=== PATIENT | male | born 1950 | race Caucasian/White ===

== ENCOUNTER 2018-02-24 07:28 | Observation (INO) | payer MEDICARE ==
--- NOTE | 2018-02-24 07:45 | ERNOTE ---
<ShaniEnio - Last Filed: 02/24/18 07:58> Neuro HPI ER Record Presenting Symptoms: other - possible seizure Time Seen by Provider: 02/24/18 07:36 Source: patient, EMS Exam Limitations: clinical condition Allergies/Adverse Reactions: Allergies Allergy/AdvReac Type Severity Reaction Status Date / Time No Known Allergies Allergy Unverified 02/24/18 07:45 Home Medications: HOME MEDICATIONS NK [No Home Medication] 02/24/18 [Last Taken Unknown] - History of Present Illness Narrative: Family heard banging sounds on the wall and found him unresponsive. Family states that the patient previously had seizures but has not had one for a long time and is not taking any medications for seizures at this time. Onset: cannot confirm onset Severity: mild Context: injury - head - Character of Deficits Associated Symptoms: Reports: confused - when EMS arrived at the scene but improved by the time they arrived in the ED. . Denies: neck/back pain Review of Systems - Review of Systems Constitutional: Absent: recent illness EYE: Absent: eye pain, vision changes Respiratory: Absent: shortness of breath Cardiology: Absent: chest pain Gastrointestinal/Abdominal: Present: abdominal pain - lower. Absent: nausea Genitourinary: Absent: frequency, dysuria Musculoskeletal: Absent: back pain Skin: Absent: rash Neurological: Present: See HPI Endocrine: Absent: excessive sweating Physical Exam - Physical Exam General Appearance: Present: wd/wn, alert, no apparent distress Head Exam: Present: contusions - right confucianism, raccoon eyes Eye Exam: Normal inspection: bilateral, PERRL: bilateral, EOMI: bilateral Ears, Nose, Throat: Present: normal ENT inspection, normal pharynx Neck: Present: normal inspection, nontender, supple Respiratory: Present: no respiratory distress, normal breath sounds, no accessory muscle use, chest nontender, lungs clear Cardiovascular/Chest: Present: regular rate, rhythm, no murmur Gastrointestinal/Abdominal: Present: normal bowel sounds, nondistended, soft, tenderness - mild lower quads Back Exam: Present: no CVA tenderness, no vertebral tenderness Extremity Exam: Present: normal range of motion, no edema Neurological Exam: Present: alert, oriented, normal mood/affect, no motor/ sensory deficits Skin Exam: Present: other - abrasions on right foot, and right confucianism, bruising bilateral eyes. Sharon Coma Scale - Assess Eye Opening: Spontaneous Motor: Obeys Commands Verbal: Oriented - Total Coma Scale Total: 15 ED Progress - Transfer of Care Physician Sign Out: Enio Mcleod Receiving Physician: Ross Franco Pending Results: CT/MRI results, Labs Departure Clinical Impression: Seizure, Hypoxia COPD (chronic obstructive pulmonary disease) with emphysema Qualifiers: Emphysema type: unspecified Qualified Code(s): J43.9 - Emphysema, unspecified Episode of syncope Qualifiers: Syncope type: unspecified Qualified Code(s): R55 - Syncope and collapse - Departure Disposition: Still a patient Condition: Serious <Ross Franco - Last Filed: 02/24/18 10:31> Neuro HPI ER Record Immunizations: IMMUNIZATION HX Immunizations Up to Date No History of Influenza Vaccine No Hx Pneumococcal Vaccination No Review of Systems - Review of Systems Constitutional: Present: no symptoms reported EYE: Present: no symptoms reported ENT: Present: no symptoms reported Respiratory: Present: no symptoms reported Cardiology: Present: no symptoms reported Gastrointestinal/Abdominal: Present: abdominal pain Genitourinary: Present: no symptoms reported Musculoskeletal: Present: no symptoms reported Skin: Present: no symptoms reported Endocrine: Present: no symptoms reported Hematologic/Lymphatic: Present: no symptoms reported Psych: Present: no symptoms reported - Patient's Past Medical History Patient History - Medical: Seizures - per family Physical Exam - Physical Exam General Appearance: Present: moderate distress ED Progress - Results and Orders Patient's Lab Results:: I have reviewed the patient's lab results. - Vital Signs Patient's Vital Signs:: I have reviewed the patient's vital signs. Vital Signs: Vital Signs 02/24/18 07:34 Temperature 36.4 C L Pulse Rate 83 Respiratory 20 Rate Blood Pressure 120/63 O2 Sat by Pulse 83 L Oximetry - EKG EKG: NSR EKG read: Reviewed by me - X-Ray X-Ray #1 X-Ray: abdomen Interpretation: Reviewed by me X-Ray #2 X-Ray: chest Interpretation: Reviewed by me - CT/Ultrasound CT/Ultrasound Narrative: CT the head and CT of the C-spine reviewed by me. CT of the maxillofacial as well as CT of the chest was reviewed by me. Plan - Plan Plan: Patient has an entire host of things going awry. He has a COPD exacerbation, and was found to be hypoxic on the scene with O2 sats of 70%. He also had a syncopal episode at home and has bruising to both infraorbital regions as well as a contusion to the right side of the head. He was also found to have an age indeterminate area in the brain which could be indicative of a previous CVA. It was unclear whether he had a seizure or not, although he was not incontinent he appeared to have some components of being postictal. He has what could be a mass in the left lung apex, which could be indicative of either scarring or possible cancer. He has an elevated d-dimer so were going to do a CT of the chest, as well as CT of the maxillofacial. Patient will require fairly aggressive treatment for the lungs, although just giving him a breathing treatment and keep him on several liters his O2 saturations are now in the 90s. Patient will require a a further workup in the hospital while we stabilize his COPD, including probable carotid Doppler ultrasounds, possible echocardiogram and an EEG might be considered to rule out possible seizure disorder.
[2018-02-24 07:56] LABS: Hematocrit 41.9 % (42.0-52.0); Hemoglobin 13.6 gm/dL (13.5-18.0); Mean Cell Volume 89.1 fl (78-100); Mean Corpuscular Hemoglobin 28.9 pg (27-31); Mean Corpuscular Hgb Conc 32.5 g/dl (32-36); Mean Platelet Volume 9.9 fl (8-11.3); Neutrophil # 8.9 K/mm3 (1.3-6.0); Neutrophil % 83.8 % (42-75.0); Platelet Count 255 K/mm3 (150-450); Red Cell Distribution Width 15.3 % (11.5-14.0); White Blood Count 10.7 K/mm3 (4.0-10.5)
[2018-02-24 08:14] LABS: ALT 17 U/L (19-67); AST 13 U/L (0-48); Albumin * 3.7 gm/dl (3.4-5.0); Alkaline Phosphatase * 64 U/L (50-170); Anion Gap 12.4 mmol/L (6.8-13.8); Bilirubin, Total 0.3 mg/dL (0.0-1.1); Blood Urea Nitrogen 20 mg/dL (6-23); Ca. Corrected For Albumin 9.1 mg/dL (8.4-10.2); Calcium * 9.2 mg/dL (7.9-10.9); Carbon Dioxide 26.6 mmol/L (24-32.6); Chloride 103 mmol/L (97-106); Glucose * 154 mg/dL (70-110); Sodium 138 mmol/L (132-142); Total Protein 7.1 gm/dL (6.2-8.2)
[2018-02-24 09:41] LABS: Urine Bilirubin Negative (NEGATIVE); Urine Blood Negative /ul (NEGATIVE); Urine Ketone Negative (NEGATIVE); Urine Nitrite Negative (NEGATIVE); Urine Protein Negative (NEGATIVE); Urine Urobilinogen Normal (NORMAL); Urine pH 6.5 pH (5.0-7.0)
[2018-02-24 09:55] LABS: Cocaine Ur Negative (NEGATIVE); Urine Barbiturate Negative (NEGATIVE); Urine Benzodiazepines Negative (NEGATIVE); Urine Opiates Negative (NEGATIVE); Urine PCP Negative (NEGATIVE); Urine THC Negative (NEGATIVE)
[2018-02-24 09:56] LABS: Urine Appearance Clear (CLEAR); Urine Color Yellow; Urine WBC 0-5 /hpf (0-5)
[2018-02-24 09:57] LABS: Urine Amorphous Sediment TRACE (NONE-FEW); Urine Bacteria TRACE; Urine Mucus TRACE; Urine RBC 0-5 /hpf (0-5)
--- NOTE | 2018-02-24 23:44 | HP ---
Chief Complaint - Chief Complaint Date of Service: 02/24/18 Time of Service: 12:00 Chief Complaint: Fall, loss of consciousness History of Present Illness: Segundo is a 67 yo male with relatively no significant PMH. It appears he has successfully avoided the medical field for many years until recently he was told he had COPD in the [facility] and placed on oxygen. He reports taking no medications or inhalers. He reports a significant 100 pack year smoking history having smoked almost 2 packs per day for 50 years. He reports he has recently cut down to 3-4 cigarettes per day. He was told to use the oxygen at all times but admits that he was not using it at night. He recalls feeling well yesterday and went to bed, when he awoke he was being put into an ambulance. His family that lives with him reported they heard a loud bang which they believe was him hitting the wall and floor. He was found unconscious on the floor. He reports he is usually fine with the except of a chronic mild tremor that runs in his family and occasional shortness of breath when running. - Patient's Past Medical History Patient History - Medical: No pertinent hx Patient History - Cardiac/Respiratory: COPD Patient History - Cancer: No Hx of Cancer Patient History - Surgical Procedures: Hernia Repair Patient History - Other: None - Family History Mother Family History - Medical: , No pertinent hx Family History - Cardiac/Respiratory: No pertinent hx Family History - Cancer: No pertinent family hx Father Family History - Medical: , No pertinent hx Family History - Cardiac/Respiratory: No pertinent hx Family History - Cancer: No pertinent family hx - Social History Living Situations: home Abuse History: No History of abuse Psych History: No pertinent hx Smoking Status: Current every day smoker - 100pack year smoker Have you smoked in the past 12 months: Yes Do you dip or chew tobacco: No Patient requests Smoking Cessation Consult: Yes Initiate information on Smoking Cessation: Yes Alcohol Use: occasionally Drug Use: none - Immunizations Immunizations Up to Date: No Hx Pneumococcal Vaccination: No History of Influenza Vaccine: No Review Of Systems (GEN) - Review of Systems Generalized/Overall Review: Absent: Weakness, Chills, Fever, Malaise EENTM: Present: No Symptoms Reported Respiratory: Present: Shortness of Breath Cardiac: Present: Syncope. Absent: Chest Pain, Edema, Palpitations Abdominal: Absent: Nausea, Vomiting, Hematemesis, Abdominal Pain, Constipation, Diarrhea, Melena, Bright blood from rectum Genitourinary: Present: No Symptoms Reported Musculoskeletal: Present: No Symptoms Reported Neurological: Present: Headache, Tremors. Absent: Anxiety, Depressed, Numbness , Seizure, Tingling Skin: Present: No Symptoms Reported Endocrine: Present: No Symptoms Reported Allergies/Adverse Reactions: Allergies Allergy/AdvReac Type Severity Reaction Status Date / Time No Known Allergies Allergy Verified 02/24/18 11:46 Home Medications: HOME MEDICATIONS NK [No Home Medication] 02/24/18 [Last Taken Unknown] Exam - Exam Vital Signs: Vital Signs - Last Taken Temp 37.0 C 02/24/18 22:42 Pulse 66 02/24/18 22:42 Resp 14 02/24/18 22:42 BP 93/51 02/24/18 22:42 Pulse Ox 96 02/24/18 22:42 Constitutional: Present: Alert, Oriented x3, Cooperative ENT Exam: Present: hearing grossly normal, other - Nasal bone nontender to palpation Eye Exam: bilateral eye: normal inspection, other - Periorbital ecchymosis Respiratory: Present: lungs clear, decreased breath sounds, other - Barrel chested Cardiovascular/Chest: Present: regular rate, rhythm, no murmur Peripheral Pulses: dorsalis-pedis (R): 2+, dorsalis-pedis (L): 2+, radial (R): 2 +, radial (L): 2+ Abdomen: Present: Normal bowel sounds, soft, nontender, nondistended, no rebound tenderness, no hepatospenomegaly Skin Exam: Present: normal color, warm/dry, no cyanosis, other - ecchymosis to periorbital area Lymphatic: Present: no adenopathy Neurologic: Present: inspector plug seam II-XII nml as tested, no motor/sensory deficits, alert , normal mood/affect, oriented x 3, other - MMSE 25 Appearance: Present: other - Thin Eye contact: Present: cooperative, good eye contact, normal speech Diagnostic Studies: Laboratory Results WBC 10.7 K/mm3 (4.0-10.5) H 02/24/18 07:45 RBC 4.70 M/mm3 (4.7-6.0) 02/24/18 07:45 Hgb 13.6 gm/dL (13.5-18.0) 02/24/18 07:45 Hct 41.9 % (42.0-52.0) L 02/24/18 07:45 MCV 89.1 fl (78-100) 02/24/18 07:45 MCH 28.9 pg (27-31) 02/24/18 07:45 MCHC 32.5 g/dl (32-36) 02/24/18 07:45 RDW 15.3 % (11.5-14.0) H 02/24/18 07:45 Plt Count 255 K/mm3 (150-450) 02/24/18 07:45 MPV 9.9 fl (8-11.3) 02/24/18 07:45 Immature Gran % (Auto) 0.40 % (0.001-0.429) 02/24/18 07:45 Immature Gran # (Auto) 0.04 K/mm3 (0.000-0.0310) H 02/24/18 07:45 Neutrophils % 83.8 % (42-75.0) H 02/24/18 07:45 Lymphocytes % 9.6 % (20-51) L 02/24/18 07:45 Monocytes % 5.4 % (0.0-9) 02/24/18 07:45 Eosinophils % 0.5 % (0.0-3.0) 02/24/18 07:45 Basophils % 0.3 % (0.0-1.0) 02/24/18 07:45 Nucleated RBC % 0.0 k/mm3 (0-1) 02/24/18 07:45 Neutrophils # 8.9 K/mm3 (1.3-6.0) H 02/24/18 07:45 Lymphocytes # 1.02 k/mm3 (1.5-3.5) L 02/24/18 07:45 Monocytes # 0.6 k/mm3 (0.0-1.0) 02/24/18 07:45 Eosinophils # 0.1 k/mm3 (0.0-0.7) 02/24/18 07:45 Absolute Basophils 0.0 k/mm3 (0.0-0.1) 02/24/18 07:45 D-Dimer 0.77 ug/mL (0.19-0.49) H 02/24/18 08:59 Sodium 138 mmol/L (132-142) 02/24/18 07:45 Plasma Sodium 139 mmol/L (130-142) 02/24/18 07:45 Potassium 4.0 mmol/L (3.4-4.6) 02/24/18 07:45 Chloride 103 mmol/L (97-106) 02/24/18 07:45 Carbon Dioxide 26.6 mmol/L (24-32.6) 02/24/18 07:45 Anion Gap 12.4 mmol/L (6.8-13.8) 02/24/18 07:45 BUN 20 mg/dL (6-23) 02/24/18 07:45 Creatinine 0.91 mg/dL (0.4-1.4) 02/24/18 07:45 Est GFR (Non-Af Amer) 88 mL/min (60-130) 02/24/18 07:45 BUN/Creatinine Ratio 22.0 (9.0-21.6) H 02/24/18 07:45 Random Glucose 154 mg/dL (70-110) H 02/24/18 07:45 Calcium 9.2 mg/dL (7.9-10.9) 02/24/18 07:45 Calcium Adj for Albumin 9.1 mg/dL (8.4-10.2) 02/24/18 07:45 Total Bilirubin 0.3 mg/dL (0.0-1.1) 02/24/18 07:45 AST 13 U/L (0-48) 02/24/18 07:45 ALT 17 U/L (19-67) L 02/24/18 07:45 Alkaline Phosphatase 64 U/L (50-170) 02/24/18 07:45 Total Protein 7.1 gm/dL (6.2-8.2) 02/24/18 07:45 Albumin 3.7 gm/dl (3.4-5.0) 02/24/18 07:45 Urine Color Yellow 02/24/18 09:27 Urine Appearance Clear (CLEAR) 02/24/18 09:27 Urine pH 6.5 pH (5.0-7.0) 02/24/18 09:27 Ur Specific [place] 1.020 SP.GR. (1.005-1.030) 02/24/18 09:27 Urine Protein Negative mg/dL (NEGATIVE) 02/24/18: Urine Glucose (UA) Negative mg/dL (NEGATIVE) 02/24/18: Urine Ketones Negative mg/dL (NEGATIVE) 02/24/18 Urine Blood Negative /ul (NEGATIVE) 02/24/18: Urine Nitrate Negative (NEGATIVE) 02/24/18: Urine Bilirubin Negative mg/dl (NEGATIVE) 02/24/18: Urine Urobilinogen Normal EU/dl (NORMAL) 02/24/18: Ur Leukocyte Esterase Negative /ul (NEGATIVE) 02/24/18 Urine RBC 0-5 /hpf (0-5) 02/24/18 Urine WBC 0-5 /hpf (0-5) 02/24/18 Ur Epithelial Cells None seen /hpf (0-5) 02/24/18 Amorphous Sediment Trace (NONE-FEW) 02/24/18 Urine Bacteria Trace (NONE) 02/24/18: Urine Mucus Trace (NONE) 02/24/18: Urine Culture Comments No culture indicated 02/24/18 Urine Opiates Screen Negative (NEGATIVE) 02/24/18: Barbiturate Screen Negative (NEGATIVE) 02/24/18: Ur Phencyclidine Scrn Negative (NEGATIVE) 02/24/18 Urine Amphetamine Negative (NEGATIVE) 02/24/18: U Benzodiazepines Scrn Negative (NEGATIVE) 02/24/18: Urine Cocaine Screen Negative (NEGATIVE) 02/24/18: Urine Marijuana (THC) Negative (NEGATIVE) 02/24/18: Ethyl Alcohol Less than 3.0 mg/dL (0.0-10.0) 02/24/18 07:45 Assessment/Plan - Narrative Narrative: Segundo is a 67 yo male with: 1) Syncope and Collapse - Unclear etiology. He was not using his home oxygen, so I suspect he was hypoxic and delirious and fell into the wall and floor and became unconscious. Head CT negative. Will plan to obtain Brain MRI for further evaluation. Since EMS arrived he has been awake and appears to have returned to his baseline, per his reports. He still appears somewhat confused. His MMSE today is 25. 2) Acute on Chronic Respiratory Failure - Per reports he was started on oxygen 2lpm continuous. He was found at home with oxygen of 70%, but may not have been wearing his oxygen overnight. Respiratory failure likely from COPD, but I do not have PFT data to confirm. CT also shows potential lung mass. Will need outpatient PET CT. Will place on oxygen and wean to lowest needed dose. 3) Lung Mass - Will need outpatient PET CT. - Assessment/Plan (1) Syncope and collapse Problem: Acute (2) Acute and chronic respiratory failure Problem: Acute Qualifiers: Respiratory failure complication: hypoxia Qualified Code(s): J96.21 - Acute and chronic respiratory failure with hypoxia (3) Lung mass Problem: Acute
--- NOTE | 2018-02-25 16:24 | DS ---
(1) Syncope and collapse Problem: Acute (2) Acute and chronic respiratory failure Problem: Acute Qualifiers: Respiratory failure complication: hypoxia Qualified Code(s): J96.21 - Acute and chronic respiratory failure with hypoxia (3) Lung mass Problem: Acute Description of Stay: Segundo is a 67 yo male that was admitted due to syncopal episode and hypoxia. He was recently diagnosed with chronic respiratory failure possible secondary to COPD, although he has not undergone PFTs. He had evaluation for syncope with Brain MRI and chest CT for hypoxia. Brain MRI showed possible aneurysm and chest CT showed a lung mass. Once placed on his usual continuous O2 his oxygen remained stable and he felt at his usual. I suspect that he had not been wearing his home oxygen at night and awoke hypoxic. There are family reports that they heard him stumbling around after he woke up and then he lost consciousness. He has no diagnosed history as he does not have a primary care provider. He is currently doing well and at his baseline. He was evaluated by PT and is ok for home discharge. Will have him follow up in the clinic with me and he will have further evaluation with Head MRA to further evaluate aneurysm, PET CT to evaluate lung mass, and PFTs to evaluate his chronic respiratory failure. Procedures Performed: none Discharge Location: Home Disposition: Home self-care Condition: Serious Discharge Activity: Activity as tolerated Discharge Diet: General/regular food Referrals: Long Brown DO [Staff Physician] - One Week Problem Oriented Discharge Instructions to Patient/Family: Chronic Obstructive Pulmonary Disease, [id number], Smoking Cessation, Tips for Success, Syncope, [id number] Additional Patient Instructions (free text): -Please make TCM appointment unless assisted discharge. Thank you! Caprice @ [phone] Follow up one time with on 03-04-18 at 2:00pm.. Continue to use oxygen 2lpm continuous during day and night. Prescriptions (Any new or edited meds): Albuterol Sulfate [Proair Hfa] 2 puff IH Q4H PRN #1 inhaler PRN Reason: Shortness Of Breath Complete Home Medications List: Complete Home Medication List: Albuterol Sulfate [Proair Hfa] 2 puff IH Q4H PRN #1 inhaler 02/25/18
[2018-02-25 17:13] VITALS: BP 112/56
== END 2018-02-25 17:13 | disposition home or self-care (01) ==
LOC: ER 07:28 → MS 10:31 → INTOOBSV 10:31
PROVIDERS: ADMIT Family Medicine; ATTEND Family Medicine
DX: S00.83XA Contusion of other part of head, initial encounter (principal); S90.31XA Contusion of right foot, initial encounter; W18.39XA Other fall on same level, initial encounter; Y92.013 Bedroom of single-family (private) house as the place of occurrence of the external cause; R55 Syncope and collapse; J44.1 Chronic obstructive pulmonary disease with (acute) exacerbation; J96.01 Acute respiratory failure with hypoxia; J43.9 Emphysema, unspecified; F17.210 Nicotine dependence, cigarettes, uncomplicated; R40.2363 Coma scale, best motor response, obeys commands, at hospital admission; R40.2143 Coma scale, eyes open, spontaneous, at hospital admission; R40.2253 Coma scale, best verbal response, oriented, at hospital admission; R40.2413 Glasgow coma scale score 13-15, at hospital admission; R91.8 Other nonspecific abnormal finding of lung field
CPT/HCPCS: 36415; 70450; 70486; 70553; 71020; 71046; 71275; 72125; 74019; 74020; 80053; 80307; 80320; 81001; 85025; 85379; 93005; 94762; 97161; 99285; G0378; G0479; G0481; G8978; G8979; G8980

== ENCOUNTER 2020-08-01 12:52 | Observation (INO) ==
--- NOTE | 2020-08-01 13:37 | ERNOTE ---
Neuro HPI ER Record Date of Service: 08/01/20 Presenting Symptoms: confusion, other - alterred mental status Time Seen by Provider: 08/01/20 13:07 Source: EMS Exam Limitations: clinical condition Immunizations: IMMUNIZATION HX Immunizations Up to Date Yes History of Influenza Vaccine More Information Required Hx Pneumococcal Vaccination More Information Required Allergies/Adverse Reactions: Allergies Allergy/AdvReac Type Severity Reaction Status Date / Time No Known Allergies Allergy Verified 06/17/19 03:03 Home Medications: HOME MEDICATIONS Albuterol Sulfate [Proair Hfa] 2 puff IH Q4H PRN #1 inhaler 02/25/18 [Last Taken Unknown] Atorvastatin Calcium [Lipitor] 10 mg PO DAILY 01/22/19 [Last Taken Unknown] Tiotropium [place] [Spiriva] 1 cap INHALATION DAILY 01/22/19 [Last Taken Unknown] - History of Present Illness Narrative: patient presents to ed with c/o alterred mental status,wasfound crawleing on floor , combative given 1 mg versed iv Onset: cannot confirm onset Severity: moderate - Character of Deficits New weakness: Present: general (diffuse) Additional Deficits: Present: decrease ability to walk, weakness Baseline Cognition: Present: alert, oriented x 4 Baseline Gait: Present: walks w/o assistance Associated Symptoms: Reports: altered mental status, disoriented, confused, agitated Review of Systems - Narrative Narrative: unable to obtain ros due to present confusional state - Review of Systems Constitutional: Present: See HPI, other - alterred mental status Medical History (Last Reviewed 06/20/19 @ 18:25 by Azucena Zhang MD) History of COPD (Acute) Pneumonia (Acute) Surgical History: Surgical History (Last Reviewed 08/01/20 @ 13:02 by Mi Tolbert RN) History of dental surgery (Acute) History of hernia repair (Acute) Family History: Family History (Last Reviewed 08/01/20 @ 13:02 by Mi Tolbert RN) Other No pertinent family history Social History: (Last Reviewed 08/01/20 @ 13:02 by Mi Tolbert RN) Social History: adopted: No foster care: No fpc: No lives independently: Yes household members: family caregiver/support person: No current occupational status: retired current occupational exposures/hazards: No Tobacco: Smoking Status: Former smoker Alcohol: alcohol intake frequency: holiday/special occasion Substance Use: substance use type: does not use Pets: pets and animals: cat(s) Physical Exam - Physical Exam General Appearance: Present: lethargic, other - combative Head Exam: Present: normal inspection, no evidence of injury Eye Exam: Normal inspection: bilateral, PERRL: bilateral, EOMI: bilateral Ears, Nose, Throat: Present: normal ENT inspection, normal pharynx Neck: Present: normal inspection, nontender Respiratory: Present: no respiratory distress, normal breath sounds, no accessory muscle use, chest nontender, lungs clear Cardiovascular/Chest: Present: regular rate, rhythm, no murmur, normal peripheral pulses Gastrointestinal/Abdominal: Present: normal bowel sounds, tenderness Back Exam: Present: normal inspection, normal range of motion, no CVA tenderness, no vertebral tenderness Extremity Exam: Present: normal inspection, non-tender, normal range of motion, no edema Neurological Exam: Present: motor weakness, disoriented to person, disoriented to time Skin Exam: Present: pallor Lymphatic Exam: Present: no adenopathy Dale Coma Scale - Assess Eye Opening: To Pain Motor: Localizes to Pain Verbal: Inappropriate - Total Coma Scale Total: 10 Progress - Date and Time Seen: Date and Time: 08/01/20 16:22 patient alterred mental status returns to normal, lactic acid elevated case discussed with dr geneva brown for admission - Results and Orders Patient's Lab Results:: I have reviewed the patient's lab results. - Vital Signs Patient's Vital Signs:: I have reviewed the patient's vital signs. Vital Signs: Vital Signs 08/01/20 12:53 08/01/20 13:04 Temperature 36.9 C Pulse Rate 89 93 Respiratory Rate 28 H 26 H Blood Pressure 118/99 H 118/99 H O2 Sat by Pulse Oximetry 88 L 97 - EKG EKG #1 EKG: NSR - X-Ray X-Ray #1 X-Ray: chest Interpretation: Sergo w/ radiologist - copd unchanged from previousx-rays - CT/Ultrasound CT/Ultrasound Narrative: ct head no acute changes - Progress/Reassessment Chief Complaint: Altered Mental Status Progress:: Improved - Transfer of Care Expected Disposition: Discharge Plan - Plan Plan: to admit to observation Departure Clinical Impression: Altered mental status, Urinary tract infection - Departure Disposition: Short Term Hospital Inpatient Condition: Fair
[2020-08-01] MEDS ORDERED: NORMAL SALINE 1,000 ML IV ONE ×2 (13:40→16:32)
[2020-08-01 13:53] LABS: Urine Bilirubin Negative (NEGATIVE); Urine Ketone 5 mg/dL (NEGATIVE); Urine Protein Negative (NEGATIVE); Urine Specific Gravity >=1.030 SP.GR. (1.005-1.030); Urine Urobilinogen Normal (NORMAL)
[2020-08-01 13:57] LABS: Hematocrit 41.8 % (42.0-52.0); Hemoglobin 12.9 gm/dL (13.5-18.0); Mean Cell Volume 87.8 fl (78-100); Mean Corpuscular Hemoglobin 27.1 pg (27-31); Mean Corpuscular Hgb Conc 30.9 g/dl (32-36); Mean Platelet Volume 9.9 fl (8-11.3); Neutrophil # 12.2 K/mm3 (1.3-6.0); Neutrophil % 90.8 % (42-75.0); Platelet Count 239 K/mm3 (150-450); Red Blood Count 4.76 M/mm3 (4.7-6.0); Red Cell Distribution Width 15.4 % (11.5-14.0); White Blood Count 13.4 K/mm3 (4.0-10.5)
[2020-08-01 14:05] LABS: Cocaine Ur Negative (NEGATIVE); Urine Barbiturate Negative (NEGATIVE); Urine Opiates Negative (NEGATIVE); Urine PCP Negative (NEGATIVE); Urine THC Negative (NEGATIVE)
[2020-08-01 14:06] LABS: Urine Benzodiazepines Positive (NEGATIVE)
[2020-08-01 14:08] LABS: Urine Appearance Slightly Cloudy (CLEAR); Urine Blood 5 /ul (NEGATIVE); Urine Color Yellow; Urine Nitrite Positive (NEGATIVE)
[2020-08-01 14:09] LABS: Urine Amorphous Sediment Few - 1+ (NONE-FEW); Urine Bacteria 2+; Urine Mucus Few - 1+; Urine RBC TRACE /hpf (0-5); Urine WBC 0-5 /hpf (0-5)
[2020-08-01 14:16] LABS: ALT 14 U/L (19-67); AST 13 U/L (0-48); Albumin * 3.8 gm/dl (3.4-5.0); Alkaline Phosphatase * 58 U/L (50-170); Anion Gap 14.8 mmol/L (6.8-13.8); BUN/Creatinine Ratio 20.4 (9.0-21.6); Bilirubin, Total 0.4 mg/dL (0.0-1.1); Blood Urea Nitrogen 21 mg/dL (6-23); CK Total * 61 U/L (0-259); CRP 0.2 mg/dL (0.0-0.9); Ca. Corrected For Albumin 9.2 mg/dL (8.4-10.2); Calcium * 9.4 mg/dL (7.9-10.9); Carbon Dioxide 27.1 mmol/L (24-32.6); Chloride 101 mmol/L (97-106); Glucose * 161 mg/dL (70-110); Potassium 3.9 mmol/L (3.4-4.6); Sodium 139 mmol/L (132-142); Total Protein 7.4 gm/dL (6.2-8.2)
[2020-08-01 14:17] LABS: Troponin I Less than 0.017 ng/mL (0.00-0.10)
[2020-08-01 15:10] LABS: Amylase * 33 U/L (25-115); Lipase 53 U/L (73-393)
[2020-08-01] MEDS ORDERED: ACETAMINOPHEN 500 MG TABLET PO ONE (15:48)
[2020-08-01] MEDS ORDERED: cefTRIAXone SODIUM 1,000 MG/100 ML BAG IV ONE (16:07)
[2020-08-01] MEDS ORDERED: ALBUTEROL SULFATE/IPRATROPIUM 3 ML NEBU IH PRN (17:12)
[2020-08-01] MEDS ORDERED: BISACODYL 5 MG TABLET.DR PO ONE (17:13)
[2020-08-01] MEDS ORDERED: AZITHROMYCIN 250 MG TABLET PO ONE (17:16)
--- NOTE | 2020-08-01 17:18 | HP ---
Chief Complaint - Chief Complaint Date of Service: 08/01/20 Time of Service: 17:18 Chief Complaint: Abdominal pain History of Present Illness: Segundo is a 69 yo male with Chronic respiratory failure secondary to COPD on home oxygen. He was found at home crawling on the floor and confused, he was brought to the [facility] ER for evaluation. In the ER he was mostly confused, but did report to abdominal pain. Abdominal xray showed retained stool, chest xray showed no acute changes, head CT showed no acute changes, and labs showed WBC of 13k, elevated lactate of 3.4, and Urine suspicious for UTI. In the ER his confusion improved some but he is still unsure why he is at the hospital and doesn't know how he has been feeling the last week. Medical History (Last Reviewed 08/01/20 @ 16:57 by Johana Marcus RN) History of COPD (Acute) Pneumonia (Acute) Surgical History: Surgical History (Last Reviewed 08/01/20 @ 16:58 by Johana Marcus RN) History of dental surgery (Acute) History of hernia repair (Acute) Family History: Family History (Last Reviewed 08/01/20 @ 16:58 by Johana Marcus RN) Other No pertinent family history Social History: (Last Reviewed 08/01/20 @ 17:00 by Johana Marcus RN) Social History: adopted: No foster care: No longterm: No lives independently: Yes household members: family caregiver/support person: No current occupational status: retired current occupational exposures/hazards: No Highest level of school completed/degree received: high school graduate Service: No Tobacco: Smoking Status: Former smoker Alcohol: alcohol intake: current Alcohol type: beer alcohol intake frequency: holiday/special occasion Substance Use: substance use type: does not use Pets: pets and animals: cat(s) Review Of Systems (GEN) - Review of Systems Additional Comments: Difficult due to patient condition Immunizations: IMMUNIZATION HX Immunizations Up to Date Yes History of Influenza Vaccine More Information Required Hx Pneumococcal Vaccination More Information Required Allergies/Adverse Reactions: Allergies Allergy/AdvReac Type Severity Reaction Status Date / Time No Known Allergies Allergy Verified 08/01/20 17:00 Home Medications: HOME MEDICATIONS Albuterol Sulfate [Proair Hfa] 2 puff IH Q4H PRN #1 inhaler 02/25/18 [Last Taken Unknown] Tiotropium [place] [Spiriva] 1 cap INHALATION DAILY 01/22/19 [Last Taken Unknown] Exam - Exam Vital Signs: Vital Signs - Last Taken Temp 36.9 C 08/01/20 16:45 Pulse 81 08/01/20 16:45 Resp 18 08/01/20 16:45 BP 102/47 08/01/20 16:45 Pulse Ox 98 08/01/20 16:45 Constitutional: Present: Alert, Cooperative, No distress. Absent: Oriented x3 Eye Exam: bilateral eye: normal inspection Respiratory: Present: lungs clear, normal breath sounds, no respiratory distress Cardiovascular/Chest: Present: regular rate, rhythm, no edema, no murmur Peripheral Pulses: radial (R): 2+, radial (L): 2+ Abdomen: Present: Normal bowel sounds, soft, tender - diffuse Extremity: Present: normal range of motion, normal inspection, no pedal edema Skin Exam: Present: normal color, warm/dry, no cyanosis Neurologic: Present: alert, normal mood/affect, disoriented x 3 Eye contact: Present: cooperative, good eye contact, normal speech Thoughts: Present: normal thought pattern, no apparent hallucination Diagnostic Studies: Abnormal Lab Results 08/01/20 08/01/20 08/01/20 Range/Units 13:20 13:20 13:35 WBC 13.4 H (4.0-10.5) K/mm3 Hgb 12.9 L (13.5-18.0) gm/dL Hct 41.8 L (42.0-52.0) % MCHC 30.9 L (32-36) g/dl RDW 15.4 H (11.5-14.0) % Immature Gran # (Auto) 0.05 H (0.000-0.0310) K/mm3 Neutrophils % 90.8 H (42-75.0) % Lymphocytes % 3.4 L (20-51) % Neutrophils # 12.2 H (1.3-6.0) K/mm3 Lymphocytes # 0.45 L (1.5-3.5) k/mm3 pO2 (83.0-108.0) mmHg Total CO2 (19.0-24.0) mmol/L Anion Gap (6.8-13.8) mmol/L Random Glucose (70-110) mg/dL Lactic Acid, Venous (0.4-2.0) mmol/L ALT (19-67) U/L Lipase (73-393) U/L Procalcitonin (0.05-0.50) ng/mL Urine Blood 5 H (NEGATIVE) /ul Urine Nitrate Positive H (NEGATIVE) Urine Bacteria 2+ H (NONE) Urine Mucus Few - 1+ H (NONE) U Benzodiazepines Scrn Positive H (NEGATIVE) 08/01/20 08/01/20 08/01/20 Range/Units 13:35 13:35 13:35 WBC (4.0-10.5) K/mm3 Hgb (13.5-18.0) gm/dL Hct (42.0-52.0) % MCHC (32-36) g/dl RDW (11.5-14.0) % Immature Gran # (Auto) (0.000-0.0310) K/mm3 Neutrophils % (42-75.0) % Lymphocytes % (20-51) % Neutrophils # (1.3-6.0) K/mm3 Lymphocytes # (1.5-3.5) k/mm3 pO2 (83.0-108.0) mmHg Total CO2 (19.0-24.0) mmol/L Anion Gap 14.8 H (6.8-13.8) mmol/L Random Glucose 161 H (70-110) mg/dL Lactic Acid, Venous 3.6 H* (0.4-2.0) mmol/L ALT 14 L (19-67) U/L Lipase (73-393) U/L Procalcitonin Less than 0.05 L (0.05-0.50) ng/mL Urine Blood (NEGATIVE) /ul Urine Nitrate (NEGATIVE) Urine Bacteria (NONE) Urine Mucus (NONE) U Benzodiazepines Scrn (NEGATIVE) 08/01/20 08/01/20 Range/Units 13:40 13:54 WBC (4.0-10.5) K/mm3 Hgb (13.5-18.0) gm/dL Hct (42.0-52.0) % MCHC (32-36) g/dl RDW (11.5-14.0) % Immature Gran # (Auto) (0.000-0.0310) K/mm3 Neutrophils % (42-75.0) % Lymphocytes % (20-51) % Neutrophils # (1.3-6.0) K/mm3 Lymphocytes # (1.5-3.5) k/mm3 pO2 72.5 L (83.0-108.0) mmHg Total CO2 26.9 H (19.0-24.0) mmol/L Anion Gap (6.8-13.8) mmol/L Random Glucose (70-110) mg/dL Lactic Acid, Venous (0.4-2.0) mmol/L ALT (19-67) U/L Lipase 53 L (73-393) U/L Procalcitonin (0.05-0.50) ng/mL Urine Blood (NEGATIVE) /ul Urine Nitrate (NEGATIVE) Urine Bacteria (NONE) Urine Mucus (NONE) U Benzodiazepines Scrn (NEGATIVE) Laboratory Results WBC 13.4 K/mm3 (4.0-10.5) H 08/01/20 13:35 RBC 4.76 M/mm3 (4.7-6.0) 08/01/20 13:35 Hgb 12.9 gm/dL (13.5-18.0) L 08/01/20 13:35 Hct 41.8 % (42.0-52.0) L 08/01/20 13:35 MCV 87.8 fl (78-100) 08/01/20 13:35 MCH 27.1 pg (27-31) 08/01/20 13:35 MCHC 30.9 g/dl (32-36) L 08/01/20 13:35 RDW 15.4 % (11.5-14.0) H 08/01/20 13:35 Plt Count 239 K/mm3 (150-450) 08/01/20 13:35 MPV 9.9 fl (8-11.3) 08/01/20 13:35 Immature Gran % (Auto) 0.40 % (0.001-0.429) 08/01/20 13:35 Immature Gran # (Auto) 0.05 K/mm3 (0.000-0.0310) H 08/01/20 13:35 Neutrophils % 90.8 % (42-75.0) H 08/01/20 13:35 Lymphocytes % 3.4 % (20-51) L 08/01/20 13:35 Monocytes % 5.2 % (0.0-9) 08/01/20 13:35 Eosinophils % 0.0 % (0.0-3.0) 08/01/20 13:35 Basophils % 0.2 % (0.0-1.0) 08/01/20 13:35 Nucleated RBC % 0.0 k/mm3 (0-1) 08/01/20 13:35 Neutrophils # 12.2 K/mm3 (1.3-6.0) H 08/01/20 13:35 Lymphocytes # 0.45 k/mm3 (1.5-3.5) L 08/01/20 13:35 Monocytes # 0.7 k/mm3 (0.0-1.0) 08/01/20 13:35 Eosinophils # 0.0 k/mm3 (0.0-0.7) 08/01/20 13:35 Absolute Basophils 0.0 k/mm3 (0.0-0.1) 08/01/20 13:35 pCO2 45.5 mmHg (35.0-48.0) 08/01/20 13:54 pO2 72.5 mmHg (83.0-108.0) L 08/01/20 13:54 HCO3 25.5 mmol/L (21.0-28.0) 08/01/20 13:54 Total CO2 26.9 mmol/L (19.0-24.0) H 08/01/20 13:54 Base Excess -0.1 mmol/L (-2.0-3.0) 08/01/20 13:54 ABG pH 7.37 (7.35-7.45) 08/01/20 13:54 ABG O2 Sat (Measured) 94.1 % (94.0-98.0) 08/01/20 13:54 Sodium 139 mmol/L (132-142) 08/01/20 13:35 Plasma Sodium 140 mmol/L (130-142) 08/01/20 13:35 Potassium 3.9 mmol/L (3.4-4.6) 08/01/20 13:35 Chloride 101 mmol/L (97-106) 08/01/20 13:35 Carbon Dioxide 27.1 mmol/L (24-32.6) 08/01/20 13:35 Anion Gap 14.8 mmol/L (6.8-13.8) H 08/01/20 13:35 BUN 21 mg/dL (6-23) 08/01/20 13:35 Creatinine 1.03 mg/dL (0.4-1.4) 08/01/20 13:35 Est GFR (Non-Af Amer) 76 mL/min (60-130) 08/01/20 13:35 BUN/Creatinine Ratio 20.4 (9.0-21.6) 08/01/20 13:35 Random Glucose 161 mg/dL (70-110) H 08/01/20 13:35 Lactic Acid, Venous 1.5 mmol/L (0.4-2.0) 08/01/20 16:13 Calcium 9.4 mg/dL (7.9-10.9) 08/01/20 13:35 Calcium Adj for Albumin 9.2 mg/dL (8.4-10.2) 08/01/20 13:35 Total Bilirubin 0.4 mg/dL (0.0-1.1) 08/01/20 13:35 AST 13 U/L (0-48) 08/01/20 13:35 ALT 14 U/L (19-67) L 08/01/20 13:35 Alkaline Phosphatase 58 U/L (50-170) 08/01/20 13:35 Ammonia Less than 17.0 mcmol/L (11-35) 08/01/20 13:35 Creatine Kinase 61 U/L (0-259) 08/01/20 13:35 Troponin I Less than 0.017 ng/mL (0.00-0.10) 08/01/20 13:35 C-Reactive Prot, Quant 0.2 mg/dL (0.0-0.9) 08/01/20 13:35 Total Protein 7.4 gm/dL (6.2-8.2) 08/01/20 13:35 Albumin 3.8 gm/dl (3.4-5.0) 08/01/20 13:35 Amylase 33 U/L (25-115) 08/01/20 13:40 Lipase 53 U/L (73-393) L 08/01/20 13:40 Procalcitonin Less than 0.05 ng/mL (0.05-0.50) L 08/01/20 13:35 Urine Color Yellow 08/01/20 13:20 Urine Appearance Slightly cloudy (CLEAR) 08/01/20 13:20 Urine pH 6.0 pH (5.0-7.0) 08/01/20 13:20 Ur Specific [place] >=1.030 SP.GR. (1.005-1.030) 08/01/20 13:20 Urine Protein Negative mg/dL (NEGATIVE) 08/01/20 13:20 Urine Glucose (UA) Negative mg/dL (NEGATIVE) 08/01/20 13:20 Urine Ketones 5 mg/dL (NEGATIVE) 08/01/20 13:20 Urine Blood 5 /ul (NEGATIVE) H 08/01/20 13:20 Urine Nitrate Positive (NEGATIVE) H 08/01/20 13:20 Urine Bilirubin Negative mg/dl (NEGATIVE) 08/01/20 13:20 Urine Urobilinogen Normal EU/dl (NORMAL) 08/01/20 13:20 Ur Leukocyte Esterase Negative /ul (NEGATIVE) 08/01/20 13:20 Urine RBC Trace /hpf (0-5) 08/01/20 13:20 Urine WBC 0-5 /hpf (0-5) 08/01/20 13:20 Ur Epithelial Cells Trace /hpf (0-5) 08/01/20 13:20 Amorphous Sediment Few - 1+ (NONE-FEW) 08/01/20 13:20 Urine Bacteria 2+ (NONE) H 08/01/20 13:20 Urine Mucus Few - 1+ (NONE) H 08/01/20 13:20 Urine Culture Comments Culture to follow 08/01/20 13:20 Urine Opiates Screen Negative (NEGATIVE) 08/01/20 13:20 Barbiturate Screen Negative (NEGATIVE) 08/01/20 13:20 Ur Phencyclidine Scrn Negative (NEGATIVE) 08/01/20 13:20 Urine Amphetamine Negative (NEGATIVE) 08/01/20 13:20 U Benzodiazepines Scrn Positive (NEGATIVE) H 08/01/20 13:20 Urine Cocaine Screen Negative (NEGATIVE) 08/01/20 13:20 Urine Marijuana (THC) Negative (NEGATIVE) 08/01/20 13:20 Ethyl Alcohol Less than 3.0 mg/dL (0.0-10.0) 08/01/20 13:35 Influenza Type A Ag Negative (NEGATIVE) 08/01/20 13:30 Influenza Type B Ag Negative (NEGATIVE) 08/01/20 13:30 SARS-CoV-2 (PCR) Not detected (NotDetected) 08/01/20 13:30 Assessment/Plan - Narrative Narrative: Segundo is a 69 yo male with: 1) Acute Mental Status change - Confusion may be due to UTI or hypoxia or other. No evidence of stroke, if confusion persists may consider brain MRI. Already confusion appears to be better than when he first arrived in the ER. Will admit to observation, if symptoms resolve may discharge to home tomorrow. If confusion persists he may need further evaluation and workup and require inpatient admission. 2) UTI - Urine Culture pending, given rocephin in the ER. If culture is growing bacteria will continue antibiotics. Will give IV fluids. 3) Chronic Respiratory Failure with hypoxia - Segundo admits to being on home oxygen but is unsure if he has been using it lately. He reports that most of the time he does not use his oxygen. His confusion may be due to hypoxia. Will monitor oxygen needs. - Assessment/Plan (1) Altered mental status Problem: Acute Qualifiers: Altered mental status type: disorientation Qualified Code(s): R41.0 - Disorientation, unspecified (2) Chronic respiratory failure with hypoxia Problem: Chronic (3) COPD (chronic obstructive pulmonary disease) with emphysema Problem: Chronic Qualifiers: Emphysema type: unspecified Qualified Code(s): J43.9 - Emphysema, unspecified (4) Urinary tract infection Problem: Suspected Qualifiers: Urinary tract infection type: site unspecified Hematuria presence: without hematuria Qualified Code(s): N39.0 - Urinary tract infection, site not specified
[2020-08-01] MEDS: POLYETHYLENE GLYCOL 3350 17 GM PACKET PO SCH (18:06)
[2020-08-01] MEDS ORDERED: ACETAMINOPHEN 500 MG TABLET PO PRN (19:20)
[2020-08-01] MEDS ORDERED: KETOROLAC TROMETHAMINE 30 MG/ML VIAL IV PRN (19:21)
[2020-08-02 06:23] LABS: Hematocrit 36.7 % (42.0-52.0); Hemoglobin 11.2 gm/dL (13.5-18.0); Mean Cell Volume 89.5 fl (78-100); Mean Corpuscular Hemoglobin 27.3 pg (27-31); Mean Corpuscular Hgb Conc 30.5 g/dl (32-36); Mean Platelet Volume 9.7 fl (8-11.3); Neutrophil # 4.8 K/mm3 (1.3-6.0); Neutrophil % 65.5 % (42-75.0); Platelet Count 205 K/mm3 (150-450); Red Cell Distribution Width 15.5 % (11.5-14.0); White Blood Count 7.3 K/mm3 (4.0-10.5)
[2020-08-02 06:37] LABS: Albumin * 3.1 gm/dl (3.4-5.0); Anion Gap 11.5 mmol/L (6.8-13.8); BUN/Creatinine Ratio 24.1 (9.0-21.6); Bilirubin, Total 0.6 mg/dL (0.0-1.1); Ca. Corrected For Albumin 9.1 mg/dL (8.4-10.2); Calcium * 8.7 mg/dL (7.9-10.9); Carbon Dioxide 26.2 mmol/L (24-32.6); Potassium 3.7 mmol/L (3.4-4.6); Total Protein 6.2 gm/dL (6.2-8.2)
[2020-08-02] MEDS: POLYETHYLENE GLYCOL 3350 17 GM PACKET PO SCH (08:57)
[2020-08-02] MEDS ORDERED: TIOTROPIUM BROMIDE 5 CAP INHALER IH SCH (09:00)
--- NOTE | 2020-08-02 09:36 | DS ---
(1) Acute and chronic respiratory failure Problem: Resolved Qualifiers: Respiratory failure complication: hypoxia Qualified Code(s): J96.21 - Acute and chronic respiratory failure with hypoxia (2) Altered mental status Problem: Resolved Qualifiers: Altered mental status type: disorientation Qualified Code(s): R41.0 - Disorientation, unspecified (3) Chronic respiratory failure with hypoxia Problem: Chronic (4) COPD (chronic obstructive pulmonary disease) with emphysema Problem: Chronic Qualifiers: Emphysema type: unspecified Qualified Code(s): J43.9 - Emphysema, unspecified (5) Urinary tract infection Problem: Ruled-out Qualifiers: Urinary tract infection type: site unspecified Hematuria presence: without hematuria Qualified Code(s): N39.0 - Urinary tract infection, site not specified Date of Discharge:: 08/02/20 Hospital Course: Segundo is a 69 yo male admitted for altered mental status. Initially unclear as to the cause of this, suspecting UTI vs dehydration vs hypoxia as the cause. He has chronic respiratory failure secondary to COPD and has home oxygen that he is to use continuously. He admitted he had not been using his oxygen much at home. He had been found crawling at home and confused. Evaluation in the ER showed retained stool and urine that was suspicious of UTI vs dehydration. He was given IV fluids and rocephin in the ER. He improved with this treatment. He was monitored in observation overnight and did well. He was given stool softeners for constipation. He was placed on oxygen overnight. This morning he feels great and wants to be discharged. Urine culture is negative. I suspect his altered mentation was secondary to hypoxia. He was educated to use his oxygen at home. No changes in medication. Procedures Performed: none Results and Findings: Pending Mircobiology Results 08/01/20 13:37 Urine,Catheterized Urine Culture - Preliminary No Growth Lab Pending Results 08/01/20 13:20: Urine Opiates Screen Negative, Barbiturate Screen Negative, Ur Phencyclidine Scrn Negative, Urine Amphetamine Negative, U Benzodiazepines Scrn Positive H, Urine Cocaine Screen Negative, Urine Marijuana (THC) Negative 08/01/20 13:20: Urine Color Yellow, Urine Appearance Slightly cloudy, Urine pH 6.0, Ur Specific [place] >=1.030, Urine Protein Negative, Urine Glucose (UA) Negative, Urine Ketones 5, Urine Blood 5 H, Urine Nitrate Positive H, Urine Bilirubin Negative, Urine Urobilinogen Normal, Ur Leukocyte Esterase Negative, Urine RBC Trace, Urine WBC 0-5, Ur Epithelial Cells Trace, Amorphous Sediment Few - 1+, Urine Bacteria 2+ H, Urine Mucus Few - 1+ H, Urine Culture Comments Culture to follow 08/01/20 13:30: SARS-CoV-2 (PCR) Not detected 08/01/20 13:30: Influenza Type A Ag Negative, Influenza Type B Ag Negative 08/01/20 13:35: WBC 13.4 H, RBC 4.76, Hgb 12.9 L, Hct 41.8 L, MCV 87.8, MCH 27.1, MCHC 30.9 L, RDW 15.4 H, Plt Count 239, MPV 9.9, Immature Gran % (Auto) 0.40, Immature Gran # (Auto) 0.05 H, Neutrophils % 90.8 H, Lymphocytes % 3.4 L, Monocytes % 5.2, Eosinophils % 0.0, Basophils % 0.2, Nucleated RBC % 0.0, Neutrophils # 12.2 H, Lymphocytes # 0.45 L, Monocytes # 0.7, Eosinophils # 0.0, Absolute Basophils 0.0 08/01/20 13:35: Sodium 139, Plasma Sodium 140, Potassium 3.9, Chloride 101, Carbon Dioxide 27.1, Anion Gap 14.8 H, BUN 21, Creatinine 1.03, Est GFR (Non-Af Amer) 76, BUN/Creatinine Ratio 20.4, Random Glucose 161 H, Calcium 9.4, Calcium Adj for Albumin 9.2, Total Bilirubin 0.4, AST 13, ALT 14 L, Alkaline Phosphatase 58, Creatine Kinase 61, Troponin I Less than 0.017, C-Reactive Prot, Quant 0.2, Total Protein 7.4, Albumin 3.8, Ethyl Alcohol Less than 3.0 08/01/20 13:35: Lactic Acid, Venous 3.6 H* 08/01/20 13:35: Procalcitonin Less than 0.05 L 08/01/20 13:35: Ammonia Less than 17.0 08/01/20 13:40: Amylase 33, Lipase 53 L 08/01/20 13:54: pCO2 45.5, pO2 72.5 L, HCO3 25.5, Total CO2 26.9 H, Base Excess -0.1, ABG pH 7.37, ABG O2 Sat (Measured) 94.1 08/01/20 16:13: Lactic Acid, Venous 1.5 08/02/20 06:15: WBC 7.3 D, RBC 4.10 L, Hgb 11.2 L, Hct 36.7 L, MCV 89.5, MCH 27.3, MCHC 30.5 L, RDW 15.5 H, Plt Count 205, MPV 9.7, Immature Gran % (Auto) 0.30, Immature Gran # (Auto) 0.02, Neutrophils % 65.5, Lymphocytes % 21.8, Monocytes % 9.9 H, Eosinophils % 1.7, Basophils % 0.8, Nucleated RBC % 0.0, Neutrophils # 4.8, Lymphocytes # 1.58, Monocytes # 0.7, Eosinophils # 0.1, Absolute Basophils 0.1 08/02/20 06:15: Sodium 139, Plasma Sodium 139, Potassium 3.7, Chloride 105, Carbon Dioxide 26.2, Anion Gap 11.5, BUN 20, Creatinine 0.83, Est GFR (Non-Af Amer) 98 D, BUN/Creatinine Ratio 24.1 H, Random Glucose 84 D, Calcium 8.7, Calcium Adj for Albumin 9.1, Total Bilirubin 0.6, AST 12, ALT 12 L, Alkaline Phosphatase 48 L, Total Protein 6.2, Albumin 3.1 L Discharge Location: Home Disposition: Home self-care Condition: Fair Discharge Activity: Activity as tolerated Discharge Diet: General/regular food Problem Oriented Discharge Instructions to Patient/Family: Acute Respiratory Failure, Adult Complete Home Medications List: Complete Home Medication List: Albuterol Sulfate [Proair Hfa] 2 puff IH Q4H PRN #1 inhaler 02/25/18 Tiotropium [place] [Spiriva] 1 cap INHALATION DAILY 01/22/19 Forms: Patient Portal Registration
[2020-08-02] MEDS ORDERED: FLU VACC QS2020-21(6MOS UP)/PF 60 MCG/0.5 ML SYRINGE IM ONE (10:45)
[2020-08-02 10:53] VITALS: BP 104/58
== END 2020-08-02 11:05 | disposition home or self-care (01) ==
LOC: ER 12:52 → MS 12:52
PROVIDERS: ADMIT Family Medicine; ATTEND Family Medicine